=== PATIENT | male | born 2000 | race American Indian/Alaskan Native ===

== ENCOUNTER 2019-08-28 17:52 | Inpatient (IN) | payer BC ==
[2019-08-28] MEDS ORDERED: levETIRAcetam 1000 MG/NS 0.75% 1,000 MG/100 ML BAG IV ONE (19:44)
[2019-08-28] MEDS ORDERED: BUTALB/ACETAMINOPHEN/CAFFEINE TAB PO ONE (20:39)
--- NOTE | 2019-08-28 20:44 | Emergency Department Report ---
HPI - General Chief Complaint: Seizure Time Seen by Provider: 08/28/19 19:43 - HPI HPI: Room 9 The patient is a 18-year-old male presenting with a chief complaint of seizure. Today at approximately 16:30 the patient had a generalized tonic-clonic seizure lasting approximately 10 seconds. The patient's last seizure reportedly was in May 2019. The patient has mostly been compliant with his Keppra. Per the father in the room he states the patient is back to his baseline mentally. Patient complains of a headache and gives it a score of 9/10 Location: [See above] Duration: [See above] Quality: [See above] Severity: [See above] Timing: [See above] Context: [See above] Modifying factors: [See above] Associated signs and symptoms: [see above] ED Past Medical Hx - Past Medical History Previous Medical History?: Yes Hx Seizures: Yes (Since he was a child) - Surgical History Past Surgical History?: No - Family History Family history: no significant - Social History Smoking Status: Never Smoker Substance Use Type: None - Medications Home Medications: Home Medications Medication Instructions Recorded Confirmed Last Taken Type Butalb/Acetamin/Caff 50-325-40 2 tab PO Q8HR PRN #10 tablet 08/28/19 Unknown Rx [Fioricet 50-325-40] ED Review of Systems ROS: Stated complaint: SEIZURE Other details as noted in HPI Constitutional: no symptoms reported Eyes: denies: eye pain ENT: denies: throat pain Respiratory: no symptoms reported Cardiovascular: denies: chest pain Endocrine: no symptoms reported Gastrointestinal: denies: abdominal pain Genitourinary: denies: dysuria Musculoskeletal: denies: back pain Neurological: headache Physical Exam - Physical Exam Vital Signs: Vital Signs 08/28/19 08/28/19 18:37 19:19 Temperature 98.3 F Pulse Rate 87 75 Respiratory 17 19 Rate Blood Pressure 133/90 Blood Pressure 141/92 [Left] O2 Sat by Pulse 100 100 Oximetry Physical Exam: GENERAL: The patient is well-developed well-nourished male lying on stretcher not appearing to be in acute distress. [] HEENT: Normocephalic. Atraumatic. Extraocular motions are intact. Patient has moist mucous membranes. NECK: Supple. No axial tenderness to palpation CHEST/LUNGS: Clear to auscultation. There is no respiratory distress noted. HEART/CARDIOVASCULAR: Regular. There is no tachycardia. There is no gallop rub or murmur. ABDOMEN: Abdomen is soft, nontender. Patient has normal bowel sounds. There is no abdominal distention. SKIN: There is no rash. There is no edema. There is no diaphoresis. NEURO: The patient is awake, alert, and oriented. The patient is cooperative. The patient has no focal neurologic deficits. The patient has normal speech. Cranial nerves II through XII grossly intact MUSCULOSKELETAL: There is no evidence of acute injury. ED Course Vital Signs 08/28/19 08/28/19 18:37 19:19 Temperature 98.3 F Pulse Rate 87 75 Respiratory 17 19 Rate Blood Pressure 133/90 Blood Pressure 141/92 [Left] O2 Sat by Pulse 100 100 Oximetry ED Medical Decision Making - Lab Data Result diagrams: 08/28/19 21:37 08/28/19 21:37 Laboratory Tests 08/28/19 08/28/19 08/28/19 21:37 21:37 21:37 WBC 7.1 RBC 5.77 H Hgb 15.6 H Hct 47.5 H MCV 82 L MCH 27 L MCHC 33 RDW 14.4 Plt Count 130 L Sodium 139 Potassium 4.6 Chloride 100.2 Carbon Dioxide 27 Anion Gap 16 BUN 9 Creatinine 0.9 Estimated GFR > 60 BUN/Creatinine Ratio 10 Glucose 88 Calcium 9.7 Magnesium 2.10 Total Creatine Kinase CK-MB (CK-2) CK-MB (CK-2) Rel Index Troponin T 08/28/19 21:45 WBC RBC Hgb Hct MCV MCH MCHC RDW Plt Count Sodium Potassium Chloride Carbon Dioxide Anion Gap BUN Creatinine Estimated GFR BUN/Creatinine Ratio Glucose Calcium Magnesium Total Creatine Kinase 832 H CK-MB (CK-2) 2.6 CK-MB (CK-2) Rel Index 0.3 Troponin T < 0.010 - EKG Data -: EKG Interpreted by Me EKG shows normal: sinus rhythm Rate: normal - EKG Data When compared to previous EKG there are: previous EKG unavailable Interpretation: other (bigeminy) - Differential Diagnosis seizure Critical care attestation.: If time is entered above; I have spent that time in minutes in the direct care of this critically ill patient, excluding procedure time. ED Disposition Clinical Impression: Seizure, Bigeminy, Chest pain Disposition: DC-09 OP ADMIT IP TO THIS HOSP Is pt being admited?: Yes Does the pt Need Aspirin: Yes Condition: Fair Instructions: Chest Pain (ED), Epilepsy (ED) Additional Instructions: Return to the emergency department should you develop worsening symptoms, inability to tolerate food or liquids, high fever or any other concerns Prescriptions: Butalb/Acetamin/Caff 50-325-40 [Fioricet 50-325-40] 2 tab PO Q8HR PRN #10 tablet PRN Reason: Headache Time of Disposition: 23:00 (hospitalist paged (Dr Gomez))
[2019-08-28 21:55] LABS: Hematocrit 47.5 % (35.5-45.6); Hemoglobin 15.6 gm/dl (11.8-15.2); Mean Corpuscular HGB Conc 33 % (32-34); Mean Corpuscular Volume 82 fl (84-94); Platelet Count 130 K/mm3 (140-440); Red Blood Count 5.77 M/mm3 (3.65-5.03); Red Cell Distribution Width 14.4 % (13.2-15.2)
[2019-08-28 22:21] LABS: BUN/Creatinine Ratio 10; Blood Urea Nitrogen 9 mg/dL (9-20); Calcium 9.7 mg/dL (8.4-10.2); Hemolysis Index 96
[2019-08-28 22:48] LABS: Creatine Kinase MB 2.6 ng/mL (0.0-4.0)
[2019-08-28] MEDS ORDERED: MAGNESIUM HYDROXIDE (MOM) ORAL LIQD UDC PO PRN (23:44)
[2019-08-28] MEDS ORDERED: ONDANSETRON 4 MG/2 ML INJ IV PRN (23:44)
[2019-08-28] MEDS ORDERED: MORPHINE 2 MG/1 ML INJ IV PRN (23:44)
[2019-08-28] MEDS ORDERED: ACETAMINOPHEN 325 MG TAB PO PRN (23:44)
--- NOTE | 2019-08-29 02:04 | History and Physical Report ---
History of Present Illness Date of admission: 08/28/19 23:44 Chief complaint: Seizure disorder History of present illness: Patient is a 18-year-old after Citizen Of [place] male with known history of seizure disorder. He was brought into the emergency room today after having a seizure which was tonic-clonic in nature while in school. There was no history of any head injury. No history of injury to the tongue. No urinary or fecal incontinence. Indicates that he has been compliant with his medications but missed his dose of Keppra this morning. Last seizure activity was several months ago. During the course of his work-up in the emergency room, his EKG showed ventricular bigeminy.. 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 He denies any chest pain and denies any shortness of breath. He however had some mild headache. Past History Past Medical History: seizures Past Surgical History: Other (Urethral dilatation) Social history: no significant social history Family history: no significant family history Medications and Allergies Allergies Allergy/AdvReac Type Severity Reaction Status Date / Time No Known Allergies Allergy Verified 08/29/19 00:01 Home Medications Medication Instructions Recorded Confirmed Last Taken Type levETIRAcetam [Keppra TAB] 500 mg PO BID 08/28/19 08/28/19 Unknown History Active Meds: Active Medications Acetaminophen (Tylenol) 650 mg PO Q4H PRN PRN Reason: Pain MILD(1-3)/Fever >100.5/GALVEZ Levetiracetam 500 mg/ Dextrose 105 mls @ 400 mls/hr IV Q12HR CORNELL Magnesium Hydroxide (Milk Of Magnesia) 30 ml PO Q4H PRN PRN Reason: Constipation Morphine Sulfate (Morphine) 2 mg IV Q4H PRN PRN Reason: Pain, Moderate (4-6) Ondansetron HCl (Zofran) 4 mg IV Q8H PRN PRN Reason: Nausea And Vomiting Sodium Chloride (Sodium Chloride Flush Syringe 10 Ml) 10 ml IV BID CORNELL Sodium Chloride (Sodium Chloride Flush Syringe 10 Ml) 10 ml IV PRN PRN PRN Reason: LINE FLUSH Review of Systems Neurological: headaches (Had some headache after the seizure) Exam - Constitutional Vitals: Temp Pulse Resp BP Pulse Ox 98.1 F 81 18 120/52 98 08/29/19 01:47 08/29/19 01:47 08/29/19 01:47 08/29/19 01:47 08/29/19 01:47 General appearance: Present: no acute distress, well-nourished - EENT Eyes: Present: PERRL, EOM intact ENT: hearing intact, clear oral mucosa, dentition normal - Neck Neck: Present: supple, normal ROM - Respiratory Respiratory effort: normal Respiratory: bilateral: CTA - Cardiovascular Rhythm: regular Heart Sounds: Present: S1 & S2 - Extremities Extremities: no ischemia, pulses intact, No edema, Full ROM Peripheral Pulses: within normal limits - Abdominal General gastrointestinal: Present: soft, non-tender, non-distended - Integumentary Integumentary: Present: clear, warm, dry - Musculoskeletal Musculoskeletal: strength equal bilaterally - Psychiatric Psychiatric: appropriate mood/affect, intact judgment & insight, cooperative - Neurologic Neurologic: CNII-XII intact, moves all extremities Results - Labs CBC & Chem 7: 08/29/19 04:59 08/28/19 21:37 Labs: Abnormal lab results 08/28/19 08/28/19 Range/Units 21:37 21:45 RBC 5.77 H (3.65-5.03) M/mm3 Hgb 15.6 H (11.8-15.2) gm/dl Hct 47.5 H (35.5-45.6) % MCV 82 L (84-94) fl MCH 27 L (28-32) pg Plt Count 130 L (140-440) K/mm3 Total Creatine Kinase 832 H (55-170) units/L Assessment and Plan - Patient Problems (1) Seizure Current Visit: Yes Status: Acute Plan to address problem: We will continue patient on IV Keppra. Will place on seizure precautions. We will place a consult to neurology for further evaluation and recommendation. (2) Bigeminy Current Visit: Yes Status: Acute Plan to address problem: We will place a consult to cardiology for further evaluation and recommendation. Patient indicates that he had a history of PVCs in the past and has been on beta-delores for some time. (3) DVT prophylaxis Current Visit: Yes Status: Acute Plan to address problem: Patient placed on subcutaneous heparin. (4) Full code status Current Visit: Yes Status: Acute
[2019-08-29 05:40] LABS: Basophils % (Auto) 0.3 % (0.0-1.8); Eosinophils % (Auto) 0.4 % (0.0-4.3); Hematocrit 45.4 % (35.5-45.6); Lymphocytes # (Auto) 2.4 K/mm3 (1.2-5.4); Mean Corpuscular HGB Conc 33 % (32-34); Mean Corpuscular Volume 82 fl (84-94); Monocytes # (Auto) 0.7 K/mm3 (0.0-0.8); Platelet Count 132 K/mm3 (140-440); Red Blood Count 5.56 M/mm3 (3.65-5.03); Red Cell Distribution Width 14.3 % (13.2-15.2)
[2019-08-29 05:49] LABS: INR 1.17 (0.87-1.13)
[2019-08-29 06:01] LABS: BUN/Creatinine Ratio 12; Blood Urea Nitrogen 11 mg/dL (9-20); Calcium 8.9 mg/dL (8.4-10.2); Hemolysis Index 14
[2019-08-29] MEDS ORDERED: levETIRAcetam 500 MG in DEXTROSE 5% IN WATER 100 ML IV SCH (10:00)
--- NOTE | 2019-08-29 10:25 | Consultation ---
History of Present Illness Consult date: 08/29/19 Consult reason: other (Bigeminy) History of present illness: This is a 18-year old male admitted with seizures. A cardiac consultation has been requested for abnormal ECG. His presenting ECG shows sinus rhythm with ventricular bigeminy. Patient denies chest pain, shortness of breath and palpitations. Review of telemetry strips shows a normal sinus rhythm. The ventricular bigeminy has resolved. Past History Past Medical History: seizures Past Surgical History: Other (Urethral dilatation) Social history: no significant social history Family history: no significant family history Medications and Allergies Allergies Allergy/AdvReac Type Severity Reaction Status Date / Time No Known Allergies Allergy Verified 08/29/19 00:01 Home Medications Medication Instructions Recorded Confirmed Last Taken Type levETIRAcetam [Keppra TAB] 500 mg PO BID 08/28/19 08/28/19 Unknown History Active Meds: Active Medications Acetaminophen (Tylenol) 650 mg PO Q4H PRN PRN Reason: Pain MILD(1-3)/Fever >100.5/GALVEZ Levetiracetam 500 mg/ Dextrose 105 mls @ 400 mls/hr IV Q12HR CORNELL Magnesium Hydroxide (Milk Of Magnesia) 30 ml PO Q4H PRN PRN Reason: Constipation Morphine Sulfate (Morphine) 2 mg IV Q4H PRN PRN Reason: Pain, Moderate (4-6) Ondansetron HCl (Zofran) 4 mg IV Q8H PRN PRN Reason: Nausea And Vomiting Sodium Chloride (Sodium Chloride Flush Syringe 10 Ml) 10 ml IV BID CORNELL Sodium Chloride (Sodium Chloride Flush Syringe 10 Ml) 10 ml IV PRN PRN PRN Reason: LINE FLUSH Physical Examination Vital Signs Temp Pulse Resp BP Pulse Ox 98.3 F 87 17 133/90 100 08/28/19 18:37 08/28/19 18:37 08/28/19 18:37 08/28/19 18:37 08/28/19 18:37 General appearance: no acute distress HEENT: Positive: PERRL Neck: Positive: neck supple, trachea midline Cardiac: Positive: Reg Rate and Rhythm Lungs: Positive: Normal Breath Sounds Neuro: Positive: Grossly Intact Abdomen: Positive: Soft Extremities: Absent: edema Results 08/29/19 04:59 08/29/19 04:59 Cardiac Enzymes 08/28/19 Range/Units 21:45 CK-MB (CK-2) 2.6 (0.0-4.0) ng/mL Coagulation 08/29/19 Range/Units 04:59 PT 14.8 (12.2-14.9) Sec. INR 1.17 H (0.87-1.13) CBC 08/28/19 08/29/19 Range/Units 21:37 04:59 WBC 7.1 6.4 (4.5-11.0) K/mm3 RBC 5.77 H 5.56 H (3.65-5.03) M/mm3 Hgb 15.6 H 15.0 (11.8-15.2) gm/dl Hct 47.5 H 45.4 (35.5-45.6) % Plt Count 130 L 132 L (140-440) K/mm3 Lymph # 2.4 (1.2-5.4) K/mm3 [place] # 0.7 (0.0-0.8) K/mm3 Eos # 0.0 (0.0-0.4) K/mm3 Baso # 0.0 (0.0-0.1) K/mm3 Comprehensive Metabolic Panel 08/28/19 08/29/19 Range/Units 21:37 04:59 Sodium 139 141 (137-145) mmol/L Potassium 4.6 3.8 (3.6-5.0) mmol/L Chloride 100.2 103.1 (98-107) mmol/L Carbon Dioxide 27 24 (22-30) mmol/L BUN 9 11 (9-20) mg/dL Creatinine 0.9 0.9 (0.8-1.5) mg/dL Glucose 88 99 (75-100) mg/dL Calcium 9.7 8.9 (8.4-10.2) mg/dL
--- NOTE | 2019-08-29 11:09 | Progress Note ---
Assessment and Plan Assessment and plan: 18-year-old man who presented to the hospital after a seizure. Apparently had a generalized tonic-clonic seizure that lasted approximately 10 seconds. She has no history of seizure disorder, last seizure was in May, and had been compliant with his Keppra. By the time he arrived in the ER he was back to his baseline mentation, he also complained of headache of 9 out of 10. Bigeminy noted on EKG Diagnosis Status epilepticus Bigeminy Plan patient restarted on Keppra, pending neurology consult. Hueyeminshilpa noted, cardiology consult appreciated, asymptomatic ventricular ectopy is likely a benign finding. Recommended checking thyroid function test and echo. Hospitalist Physical - Constitutional Vitals: Temp Pulse Resp BP Pulse Ox 98.6 F 80 18 140/72 98 08/29/19 07:27 08/29/19 10:00 08/29/19 07:27 08/29/19 07:27 08/29/19 07:27 General appearance: Present: no acute distress Results - Labs CBC & Chem 7: 08/29/19 04:59 08/29/19 04:59 Labs: Laboratory Last Values WBC 6.4 K/mm3 (4.5-11.0) 08/29/19 04:59 RBC 5.56 M/mm3 (3.65-5.03) H 08/29/19 04:59 Hgb 15.0 gm/dl (11.8-15.2) 08/29/19 04:59 Hct 45.4 % (35.5-45.6) 08/29/19 04:59 MCV 82 fl (84-94) L 08/29/19 04:59 MCH 27 pg (28-32) L 08/29/19 04:59 MCHC 33 % (32-34) 08/29/19 04:59 RDW 14.3 % (13.2-15.2) 08/29/19 04:59 Plt Count 132 K/mm3 (140-440) L 08/29/19 04:59 Lymph % (Auto) 37.0 % (13.4-35.0) H 08/29/19 04:59 [place] % (Auto) 11.0 % (0.0-7.3) H 08/29/19 04:59 Eos % (Auto) 0.4 % (0.0-4.3) 08/29/19 04:59 Baso % (Auto) 0.3 % (0.0-1.8) 08/29/19 04:59 Lymph # 2.4 K/mm3 (1.2-5.4) 08/29/19 04:59 [place] # 0.7 K/mm3 (0.0-0.8) 08/29/19 04:59 Eos # 0.0 K/mm3 (0.0-0.4) 08/29/19 04:59 Baso # 0.0 K/mm3 (0.0-0.1) 08/29/19 04:59 Seg Neutrophils % 51.3 % (40.0-70.0) 08/29/19 04:59 Seg Neutrophils # 3.3 K/mm3 (1.8-7.7) 08/29/19 04:59 PT 14.8 Sec. (12.2-14.9) 08/29/19 04:59 INR 1.17 (0.87-1.13) H 08/29/19 04:59 Sodium 141 mmol/L (137-145) 08/29/19 04:59 Potassium 3.8 mmol/L (3.6-5.0) 08/29/19 04:59 Chloride 103.1 mmol/L (98-107) 08/29/19 04:59 Carbon Dioxide 24 mmol/L (22-30) 08/29/19 04:59 Anion Gap 18 mmol/L 08/29/19 04:59 BUN 11 mg/dL (9-20) 08/29/19 04:59 Creatinine 0.9 mg/dL (0.8-1.5) 08/29/19 04:59 Estimated GFR > 60 ml/min 08/29/19 04:59 BUN/Creatinine Ratio 12 % 08/29/19 04:59 Glucose 99 mg/dL (75-100) 08/29/19 04:59 POC Glucose 106 (70-105) H 08/29/19 08:40 Calcium 8.9 mg/dL (8.4-10.2) 08/29/19 04:59 Magnesium 2.10 mg/dL (1.7-2.3) 08/28/19 21:37 Total Creatine Kinase 832 units/L (55-170) H 08/28/19 21:45 CK-MB (CK-2) 2.6 ng/mL (0.0-4.0) 08/28/19 21:45 CK-MB (CK-2) Rel Index 0.3 (0-4) 08/28/19 21:45 Troponin T < 0.010 ng/mL (0.00-0.029) 08/28/19 21:45 Active Medications - Current Medications Current Medications: Generic Name Dose Route Start Last Admin Trade Name Freq PRN Reason Stop Dose Admin Acetaminophen 650 mg 08/28/19 23:44 Tylenol PO Q4H PRN Pain MILD(1-3)/Fever >100.5/GALVEZ Levetiracetam 500 mg/ Dextrose 105 mls @ 400 mls/hr 08/29/19 10:00 08/29/19 10:54 IV 400 mls/hr Q12HR CORNELL Administration Magnesium Hydroxide 30 ml 08/28/19 23:44 Milk Of Magnesia PO Q4H PRN Constipation Morphine Sulfate 2 mg 08/28/19 23:44 Morphine IV Q4H PRN Pain, Moderate (4-6) Ondansetron HCl 4 mg 08/28/19 23:44 Zofran IV Q8H PRN Nausea And Vomiting Sodium Chloride 10 ml 08/29/19 10:00 Sodium Chloride Flush Syringe 10 Ml IV BID CORNELL Sodium Chloride 10 ml 08/28/19 23:44 Sodium Chloride Flush Syringe 10 Ml IV PRN PRN LINE FLUSH
--- NOTE | 2019-08-29 12:50 | Consultation ---
Past History Past Medical History: seizures Past Surgical History: Other (Urethral dilatation) Social history: no significant social history Family history: no significant family history Medications and Allergies Allergies Allergy/AdvReac Type Severity Reaction Status Date / Time No Known Allergies Allergy Verified 08/29/19 00:01 Home Medications Medication Instructions Recorded Confirmed Last Taken Type levETIRAcetam [Keppra TAB] 500 mg PO BID 08/28/19 08/28/19 Unknown History Active Meds: Active Medications Acetaminophen (Tylenol) 650 mg PO Q4H PRN PRN Reason: Pain MILD(1-3)/Fever >100.5/GALVEZ Levetiracetam 500 mg/ Dextrose 105 mls @ 400 mls/hr IV Q12HR [facility] [place] Last Admin: 08/29/19 10:54 Dose: 400 mls/hr Documented by: Magnesium Hydroxide (Milk Of Magnesia) 30 ml PO Q4H PRN PRN Reason: Constipation Morphine Sulfate (Morphine) 2 mg IV Q4H PRN PRN Reason: Pain, Moderate (4-6) Ondansetron HCl (Zofran) 4 mg IV Q8H PRN PRN Reason: Nausea And Vomiting Sodium Chloride (Sodium Chloride Flush Syringe 10 Ml) 10 ml IV BID [facility] [place] Last Admin: 08/29/19 11:17 Dose: 10 ml Documented by: Sodium Chloride (Sodium Chloride Flush Syringe 10 Ml) 10 ml IV PRN PRN PRN Reason: LINE FLUSH Physical Examination - Vital Signs Vital Signs: Vital Signs Temp Pulse Resp BP Pulse Ox 98.3 F 87 17 133/90 100 08/28/19 18:37 08/28/19 18:37 08/28/19 18:37 08/28/19 18:37 08/28/19 18:37 Results - Laboratory Findings CBC and BMP: 08/29/19 04:59 08/29/19 04:59 Abnormal Lab Findings: Abnormal Labs 08/28/19 08/28/19 08/29/19 21:37 21:45 04:59 RBC 5.77 H 5.56 H Hgb 15.6 H Hct 47.5 H MCV 82 L 82 L MCH 27 L 27 L Plt Count 130 L 132 L Lymph % (Auto) 37.0 H [place] % (Auto) 11.0 H INR POC Glucose Total Creatine Kinase 832 H 08/29/19 08/29/19 04:59 08:40 RBC Hgb Hct MCV MCH Plt Count Lymph % (Auto) [place] % (Auto) INR 1.17 H POC Glucose 106 H Total Creatine Kinase Assessment and Plan 18 YEAR OLD WITH HISTORY OF SEIZURE DISORDER WHO HAS BEEN ON KEPPRA AND HIS LAST SEIZURE FEW MONTHS AGO, DEVELOPED ANOTHER EPISODE OF GENERALIZED TONIC CLONIC SEIZURE LASTING FOR ABOUT 10 SECONDS.PATIENT STATED THAT HE MISSED HIS LAST DOSE OF KEPPRA FOLLOWING WHICH HE DEVELOPED THIS SEIZURE IN THE AFTERNOON.PATIENT BECAME MENTALLY CLEAR BY THE TIME HE WAS BROUGHT TO THE EMERGENCY, HOWEVER HE HAD POST ICTAL HEADACHE. WORK UP AFTER ADMISSION SHOWS HE HAD VENTRICULAR BIGEMINY ON EKG AND HISTORY OF PVC IN THE PAST AND IS NOW BEING WORKED UP FOR HIS CARDIAC PROBLEM PHYSICAL EXAMINATION. GENERAL. IN NOACUTE DISTRESS HEART-NORMAL RATE AND RHYTHM CAROTIDS-BOTH PALPABLE CRANIAL NERVES- ALL WITH IN NORMAL LIMIT MOTOR-NORMAL STRENGTH IN ALL FOUR EXTREMITIES,WITHOUT ASYMMETRY. COORDINATION- NORMAL REFLEXES-ALL WITH IN NORMAL LIMIT WITH BILATERAL DOWN GOING TOES SENSORY- GROSSLY WITH IN NOR AL LIMIT GAIT. NORMAL IMPRESSION. 1.RECURRENCE OF SEIZURE DUE MEDICATION NON COMPLIANCE, CURRENTLY STABLE RECOMMENDATION 1. CONTINUE KEPPRA 500MG BID. 2, AVOID SLEEP DEPRIVATION,SKIPPING MEAL AND STRESSFUL SITUATIONAND CIRCUMSTANCES
--- NOTE | 2019-08-29 13:11 | Cat Scan Report ---
CT HEAD WITHOUT CONTRAST INDICATION : GALVEZ and seizure. TECHNIQUE: Axial imaging performed from the skull apex through the skull base without the use of con trast. All CT scans at this location are performed using CT dose reduction for ALARA by means of aut omated exposure control. COMPARISON: None FINDINGS: Parenchyma: No abnormal density. No mass, mass effect, hemorrhage or edema. Ventricles: Ventricles are normal in size and appear symmetric. Soft tissues: Soft tissues including the orbits appear normal. Bones: No acute osseous abnormality. Sinuses: Sinuses and mastoid air cells are clear. IMPRESSION: Normal head CT. Signer Name: Douglas Whitfield MD Signed: 08/29/2019 1:07 PM Workstation Name: [id number]
--- NOTE | 2019-08-29 15:00 | Discharge Summary ---
Providers - Providers Date of Admission: 08/28/19 23:44 Attending physician: CRISTO SALMERON MD 08/28/19 23:44 Consult to Physician [CONS] Routine Comment: Consulting Provider: BRENNA NIETO Physician Instructions: Reason For Exam: [email or web address] 08/28/19 23:48 Consult to Physician [CONS] Routine Comment: Consulting Provider: RADHA MCLAUGHLIN Physician Instructions: Reason For Exam: seizure Primary care physician: [id number] DEVEL[facility] Hospitalization Condition: Fair Hospital course: 18-year-old man who presented to the hospital after a seizure. Apparently had a generalized tonic-clonic seizure that lasted approximately 10 seconds. She has no history of seizure disorder, last seizure was in May, and had been compliant with his Keppra. By the time he arrived in the ER he was back to his baseline mentation, he also complained of headache of 9 out of 10. --Neurology spoke to the patient, he admitted that he had not been compliant with his Keppra at home. Therefore breakthrough seizure was due to noncompliance. Patient was counseled about improved adherence to his medications. Preventative health counseling performed for 17 minutes patient restarted on Keppra, neurology consult. Appreciated Bigeminy noted, cardiology consult appreciated, asymptomatic ventricular ectopy is likely a benign finding. Recommended checking thyroid function test and echo which were both unremarkable Diagnosis Status epilepticus due to nonadherence to seizure medications Bigeminy Disposition: DC-01 TO HOME OR SELFCARE Time spent for discharge: 35 minutes Core Measure Documentation - Palliative Care Palliative Care/ Comfort Measures: Not Applicable - Core Measures Any of the following diagnoses?: none Exam - Constitutional Vitals: Temp Pulse Resp BP Pulse Ox 98.6 F 83 19 140/72 99 08/29/19 07:27 08/29/19 12:00 08/29/19 10:00 08/29/19 07:27 08/29/19 10:00 General appearance: Present: no acute distress, well-nourished - EENT Eyes: Present: PERRL ENT: hearing intact, clear oral mucosa - Neck Neck: Present: supple, normal ROM - Respiratory Respiratory effort: normal Respiratory: bilateral: CTA - Cardiovascular Heart Sounds: Present: S1 & S2. Absent: rub, click - Extremities Extremities: pulses symmetrical, No edema Peripheral Pulses: within normal limits - Abdominal General gastrointestinal: Present: soft, non-tender, non-distended, normal bowel sounds Male genitourinary: Present: normal - Integumentary Integumentary: Present: clear, warm, dry - Musculoskeletal Musculoskeletal: gait normal, strength equal bilaterally - Psychiatric Psychiatric: appropriate mood/affect, intact judgment & insight - Neurologic Neurologic: CNII-XII intact, moves all extremities Plan Follow up with: PRIMARY CARE,MD [Primary Care Provider] - 7 Days Prescriptions: levETIRAcetam [Keppra TAB] 500 mg PO BID #180 levETIRAcetam [Keppra TAB] 500 mg PO BID #180 tablet
[2019-08-29 15:29] VITALS: BP 111/49
== END 2019-08-29 16:29 | disposition home or self-care (01) | DRG 101 ==
LOC: ED 17:52 → 4A 23:44
PROVIDERS: ADMIT Internal Medicine Geriatric Medicine; ATTEND Internal Medicine
DX: G40.901 Epilepsy, unspecified, not intractable, with status epilepticus (principal); R00.8 Other abnormalities of heart beat; Z71.89 Other specified counseling; Z91.14 Patient's other noncompliance with medication regimen
CPT/HCPCS: 36415; 70450; 80048; 82550; 82553; 82962; 83735; 84436; 84439; 84443; 84484; 85025; 85027; 85610; 93005; 93010; 93306; G0378; J1953; J2405